=== PATIENT | male | born 1930 | race Caucasian/White ===

== ENCOUNTER 2016-10-16 07:54 | Emergency (ER) | payer BC, MEDICARE ==
[2016-10-16] MEDS ORDERED: SODIUM CHLORIDE 0.9% 1,000 ML IV STA (08:07)
[2016-10-16] MEDS ORDERED: DILTIAZEM 125 MG in SODIUM CHLORIDE 0.9% 100 ML IV STA (08:07)
--- NOTE | 2016-10-16 08:13 | ED ---
Chest Pain HPI - General Chief Complaint: Chest Pain Stated Complaint: Chest Pressure Time Seen by Provider: 10/16/16 08:00 Source: patient, RN notes reviewed Mode of arrival: ambulatory Limitations: no limitations - History of Present Illness Initial Comments: This 85-year-old male who states he was walking this morning when he started developing some low-grade chest pressure. He had no dizziness no palpitations fevers chills sweats focal weakness. Due to the chest pressure he came in for evaluation. He states he walks quite often he was about 1 mile into his walk this morning when this occurred. Upon arrival in triage he was noted have a heart rate around 160. He has no prior history he states of tachyarrhythmias. He has no chest discomfort at this time. MD Complaint: chest pain, other - Related Data Home Medications Medication Instructions Recorded Confirmed Aspirin EC [Ecotrin Low Dose] 81 mg PO DAILY 10/16/16 10/16/16 Enalapril [Vasotec] 40 mg PO DAILY 10/16/16 10/16/16 Finasteride [Proscar] 5 mg PO DAILY 10/16/16 10/16/16 Gabapentin [Neurontin] 300 mg PO TID 10/16/16 10/16/16 Insulin NPH Hum/Reg Insulin Hm 35 unit SQ DAILY 10/16/16 10/16/16 [NovoLIN 70-30 100 UNIT/ML VIAL] Terazosin HCl 5 mg PO HS 10/16/16 10/16/16 Triamterene/Hydrochlorothiazid 1 tab PO DAILY 10/16/16 10/16/16 [Triamterene-Hctz 75-50 mg Tab] metFORMIN HCL [Glucophage] 500 mg PO BID 10/16/16 10/16/16 Previous Rx's Medication Instructions Recorded Magnesium 200 mg PO DAILY #14 tablet 10/16/16 Allergies Allergy/AdvReac Type Severity Reaction Status Date / Time No Known Allergies Allergy Verified 10/16/16 07:57 Review of Systems ROS Statement: Those systems with pertinent positive or pertinent negative responses have been documented in the HPI. ROS Other: All systems not noted in ROS Statement are negative. EKG Findings - EKG Results: EKG: interpreted by ER[facility] (EKG shows a heart rate of 154 QRS 86 daily since QTC at 298/477 nonspecific inferior changes. This appears to be consistent with atrial fibrillation this is compared to an EKG dated 5/9/08 which is that time showed a normal sinus rhythm with inferior changes) Past Medical History Past Medical History: Diabetes Mellitus, Hypertension History of Any Multi-Drug Resistant Organisms: None Reported Past Surgical History: Adenoidectomy, Appendectomy, Tonsillectomy Past Psychological History: No Psychological Hx Reported Smoking Status: Former smoker Past Alcohol Use History: Rare Past Drug Use History: None Reported General Exam - General Exam Comments Initial Comments: This is a well-developed well-nourished awake alert oriented 3 male Limitations: no limitations General appearance: alert, in no apparent distress Head exam: Present: atraumatic, normocephalic, normal inspection Eye exam: Present: normal appearance, PERRL, EOMI. Absent: scleral icterus, conjunctival injection, periorbital swelling ENT exam: Present: normal exam, mucous membranes moist Neck exam: Present: normal inspection. Absent: tenderness, meningismus, lymphadenopathy Respiratory exam: Present: normal lung sounds bilaterally. Absent: respiratory distress, wheezes, rales, rhonchi, stridor Cardiovascular Exam: Present: tachycardia, irregular rhythm. Absent: systolic murmur, diastolic murmur, rubs, gallop, clicks GI/Abdominal exam: Present: soft, normal bowel sounds. Absent: distended, tenderness, guarding, rebound, rigid Extremities exam: Present: normal inspection, full ROM, normal capillary refill. Absent: tenderness, pedal edema, joint swelling, calf tenderness Back exam: Present: normal inspection Neurological exam: Present: alert, oriented X3, CN II-XII intact Psychiatric exam: Present: normal affect, normal mood Skin exam: Present: warm, dry, intact, normal color. Absent: rash Course Vital Signs 10/16/16 10/16/16 10/16/16 07:54 08:43 10:00 Temperature 98.3 F Pulse Rate 158 H 98 91 Respiratory 22 20 20 Rate Blood Pressure 104/55 130/67 113/65 O2 Sat by Pulse 100 95 95 Oximetry - Reevaluation(s) Reevaluation #1: 10/16/16 10:17 Repeat EKG showed a sinus rhythm of 98. Interval 166 QRS 94 QT since QTC of 360 /469 nonspecific inferior changes Chest Pain MDM - MDM I did a long discussion with patient and family members. Patient did convert to a normal sinus rhythm. He has no symptoms at this time lab work is unremarkable except for a magnesium level of 1.5. Patient does not want to be admitted I did discuss the case with Dr. Holland patient will be followed up in the office tomorrow morning patient has stated he will call and make the appointment. He will be placed on magnesium supplementation I did also recommend the patient I do his usual walk in the morning until being seen by his physician. Disposition Clinical Impression: Paroxysmal atrial fibrillation with RVR, Hypomagnesemia, Chest pain Disposition: HOME SELF-CARE Condition: Good Instructions: Chest Pain (ED), Hypomagnesemia (ED), Atrial Fibrillation (ED) Additional Instructions: Follow-up with Dr. Griggs tomorrow call today for an appointment Prescriptions: Magnesium 200 mg PO DAILY #14 tablet Referrals: Bert Suresh MD [Primary Care Provider] - 1-2 days
[2016-10-16 08:19] LABS: Basophils # (A) 0.1 k/uL (0-0.2); Basophils % (A) 1 %; CH 30.2; CHCM 33.6; Eosinophils # (A) 0.1 k/uL (0-0.7); Eosinophils % (A) 1 %; HCT 47.5 % (39.0-53.0); HDW 2.32; HGB 15.5 gm/dL (13.0-17.5); Luc # (Auto) 0.24; Luc % (Auto) 2; Lymphocytes # (A) 2.7 k/uL (1.0-4.8); Lymphocytes % (A) 26 %; MCH 29.5 pg (25.0-35.0); MCHC 32.7 g/dL (31.0-37.0); MCV 90.2 fL (80.0-100.0); Monocytes # (A) 0.7 k/uL (0-1.0); Monocytes % (A) 7 %; Neutrophils # (A) 6.5 k/uL (1.3-7.7); Neutrophils % (A) 63 %; RBC 5.26 m/uL (4.30-5.90); RDW 14.1 % (11.5-15.5); WBC 10.3 k/uL (3.8-10.6); WBC (Perox) 10.27
[2016-10-16 08:33] LABS: ALT 36 U/L (21-72); AST 27 U/L (17-59); Alkaline Phosphatase 82 U/L (38-126); Anion Gap 10 mmol/L; Blood Urea Nitrogen 21 mg/dL (9-20); Calcium 9.3 mg/dL (8.4-10.2); Carbon Dioxide 25 mmol/L (22-30); Chloride 98 mmol/L (98-107); Glucose 366 mg/dL (74-99); Magnesium 1.5 mg/dL (1.6-2.3); Non-African American GFR(MDRD) 58 (>60 ml/min/1.73 sqM); Potassium 4.6 mmol/L (3.5-5.1); Sodium 133 mmol/L (137-145); Total Bilirubin 0.7 mg/dL (0.2-1.3); Total Protein 6.3 g/dL (6.3-8.2)
--- NOTE | 2016-10-16 08:33 | XR ---
EXAMINATION TYPE: XR chest 2V DATE OF EXAM: 10/16/2016 COMPARISON: NONE HISTORY: Dysrhythmia TECHNIQUE: Frontal and lateral views of the chest are obtained. FINDINGS: There is no focal air space opacity, pleural effusion, or pneumothorax seen. The cardiac silhouette size is within normal limits. The osseous structures are intact. Mild degenerative carlisle es are seen of the thoracic spine and acromioclavicular joints. IMPRESSION: No acute cardiopulmonary process.
[2016-10-16 08:37] LABS: INR 1.2 (<1.2); Partial Thromboplastin Time 24.9 sec (22.0-30.0); Prothrombin Time 11.8 sec (9.0-12.0)
[2016-10-16 08:45] LABS: Creatine Kinase 66 U/L (55-170)
[2016-10-16 08:57] LABS: Troponin I <0.012 ng/mL (0.000-0.034)
[2016-10-16 09:02] LABS: Creatine Kinase MB 3.4 ng/mL (0.0-2.4)
[2016-10-16 10:56] VITALS: BP 118/88; PULSE 81; RESP 18; TEMP 97.3
== END 2016-10-16 11:05 | disposition home or self-care (01) ==
LOC: EC 07:54
DX: I48.0 Paroxysmal atrial fibrillation (principal); E83.42 Hypomagnesemia; E11.9 Type 2 diabetes mellitus without complications; I10 Essential (primary) hypertension; Z87.891 Personal history of nicotine dependence; Z79.4 Long term (current) use of insulin; Z79.82 Long term (current) use of aspirin; Z79.899 Other long term (current) drug therapy
CPT/HCPCS: 36415; 71020; 80053; 82550; 82553; 83735; 84443; 84484; 85025; 85610; 85730; 93005; 99285

== ENCOUNTER → 2016-10-25 | Outpatient (CLI) | payer MEDICARE ==
--- NOTE | 2016-10-26 17:37 | ECHOF ---
Referral Reason:I48.0 Paroxysmal atrial fibrillation MEASUREMENTS -------- HEIGHT: 180.3 cm WEIGHT: 98.4 kg BP: 135/65 RVIDd: 3.3 cm (< 3.3) IVSd: 1.5 cm (0.6 - 1.1) LVIDd: 4.1 cm (3.9 - 5.3) LVPWd: 1.4 cm (0.6 - 1.1) IVSs: 2.0 cm LVIDs: 2.7 cm LVPWs: 2.1 cm LA Diam: 3.9 cm (2.7 - 3.8) LAESV Index (A-L): 30.77 ml/m Ao Diam: 3.5 cm (2.0 - 3.7) AV Cusp: 2.3 cm (1.5 - 2.6) MV EXCURSION: 14.924 mm (> 18.000) MV EF SLOPE: 36 mm/s (70 - 150) EPSS: 0.8 cm MV E Drake: 0.98 m/s MV DecT: 311 ms MV A Drake: 1.24 m/s MV E/A Ratio: 0.80 AR PHT: 1313 ms FINDINGS -------- Sinus rhythm with extra systolic beats. This was a technically good study. The left ventricular size is normal. There is moderate concentric left ventricular hypertrophy. Overall left ventricular systolic function is normal with, an EF between 60 - 65 %. The right ventricle is mildly enlarged. LA is midly dilated 29-33ml/m2. The right atrium is normal in size. There is mild aortic valve sclerosis. There is mild aortic regurgitation. Mild mitral annular calcification present. The tricuspid valve appears structurally normal. Trace/mild (physiologic) pulmonic regurgitation. The aortic root size is normal. Normal inferior vena cava with normal inspiratory collapse consistent with estimated right atrial pressure of 5 mmHg. There is no pericardial effusion. CONCLUSIONS -------- 1. Sinus rhythm with extra systolic beats. 2. There is mild aortic regurgitation. 3. Mild mitral annular calcification present. 4. The tricuspid valve appears structurally normal. 5. Trace/mild (physiologic) pulmonic regurgitation. 6. The aortic root size is normal. 7. Normal inferior vena cava with normal inspiratory collapse consistent with estimated right atrial pressure of 5 mmHg. 8. There is no pericardial effusion. 9. This was a technically good study. 10. The left ventricular size is normal. 11. There is moderate concentric left ventricular hypertrophy. 12. Overall left ventricular systolic function is normal with, an EF between 60 - 65 %. 13. The right ventricle is mildly enlarged. 14. LA is midly dilated 29-33ml/m2. 15. The right atrium is normal in size. 16. There is mild aortic valve sclerosis. TUFTING SUPERVISOR: Bina Srivastava RDCS
== END | disposition home or self-care (01) ==
LOC: RADECHMAIN 15:25
PROVIDERS: ATTEND Family Medicine
DX: I08.0 Rheumatic disorders of both mitral and aortic valves (principal)
CPT/HCPCS: 93306